=== PATIENT | male | born 1940 | race Asian ===

== ENCOUNTER 2018-04-12 14:06 | Inpatient (IN) | payer OTHER ==
[~2018-04-12] VITALS: Ht 180.3 cm; Wt 79.0 kg
[2018-04-12 14:50] LABS: BASOPHILS # (AUTO) 0.03 x10^3/uL (0-0.1); BASOPHILS % (AUTO) 0 % (0-1); EOSINOPHILS # (AUTO) 0.05 x10^3/uL (0-0.4); EOSINOPHILS % (AUTO) 1 % (1-7); LYMPHOCYTES # (AUTO) 1.16 x10^3/uL (1-3.4); LYMPHOCYTES % (AUTO) 11 % (22-44); MD NO; MEAN CORPUSCULAR HEMOGLOBIN 35.5 pg (27.5-34.5); MEAN CORPUSCULAR HGB CONC 33.6 g/dL (33.2-36.2); MEAN CORPUSCULAR VOLUME 105.5 fL (81-97); MEAN PLATELET VOLUME 9.5 fL (7.4-10.4); MONOCYTES % (AUTO) 7 % (2-9); NEUTROPHILS # (AUTO) 8.34 x10^3/uL (1.8-6.8); NEUTROPHILS % (AUTO) 81 % (42-75); PLATELET COUNT 288 x10^3/uL (130-400); RED BLOOD COUNT 4.34 x10^6/uL (4.38-5.82); RED CELL DISTRIBUTION WIDTH 14.8 % (9.4-14.8)
[2018-04-12 15:07] LABS: ALBUMIN 4.2 g/dL (3.4-5.0); ANION GAP 9 mmol/L (5-15); CALCIUM 9.2 mg/dL (8.5-10.1); CHLORIDE 108 mmol/L (98-107)
[2018-04-12 15:19] LABS: CREATININE 1.22 mg/dL (0.7-1.3); TROPONIN I < 0.015 ng/mL (0.000-0.045)
[2018-04-12] MEDS ORDERED: DILTIAZEM 125 MG in DEXTROSE 5% 100 ML IV SCH (15:34)
[2018-04-12] MEDS ORDERED: LORazepam 2 MG/ML, 1ML ONE (15:37)
[2018-04-12] MEDS ORDERED: CITA20TA9 PO (15:46)
[2018-04-12] MEDS ORDERED: CLON2TAB9 PO (15:47)
[2018-04-12] MEDS ORDERED: LORazepam 2 MG/ML, 1ML IVPush ONE (16:00)
[2018-04-12] MEDS ORDERED: POTASSIUM CHLORIDE 20 MEQ TAB.ER.PRT ONE (16:16)
[2018-04-12] MEDS ORDERED: SODIUM CHLORIDE 0.9% 1,000 ML IV SCH (16:27)
[2018-04-12] MEDS ORDERED: ACETAMINOPHEN 325 MG TABLET PO PRN (16:30)
[2018-04-12] MEDS ORDERED: POTASSIUM CHLORIDE 20 MEQ TAB.ER.PRT PO ONE (16:30)
[2018-04-12] MEDS ORDERED: DOCUSATE 100 MG CAPSULE PO PRN (16:30)
[2018-04-12] MEDS ORDERED: LORazepam 2 MG/ML, 1ML IVPush PRN (16:30)
[2018-04-12] MEDS ORDERED: POLYETHYLENE GLYCOL 17 GM PACKET PO PRN (16:30)
[2018-04-12] MEDS ORDERED: METHOCARBAMOL 500 MG TABLET PO PRN (16:30)
[2018-04-12] MEDS ORDERED: BISACODYL 10 MG SUPP PR PRN (16:30)
[2018-04-12] MEDS ORDERED: HEPARIN 5,000 UNITS/ML, 1ML IV ONE (17:00)
[2018-04-12] MEDS ORDERED: HEPARIN 25,000 UNITS/500ML PMX 500 ML IV PRN (17:00)
[2018-04-12] MEDS ORDERED: HEPARIN 5,000 UNITS/ML, 1ML IV PRN (17:00)
[2018-04-12 18:09] LABS: TROPONIN I < 0.015 ng/mL (0.000-0.045)
[2018-04-12 18:19] LABS: HEMOGLOBIN A1C 5.5 % (4.2-6.3)
[2018-04-12 18:24] VITALS: BP 114/62
[2018-04-12 20:12] VITALS: BP 131/75
[2018-04-12 22:29] VITALS: BP 107/58
[2018-04-12 23:21] LABS: TROPONIN I < 0.015 ng/mL (0.000-0.045)
[2018-04-13 00:24] VITALS: BP 116/70
[2018-04-13 03:04] LABS: BASOPHILS # (AUTO) 0.03 x10^3/uL (0-0.1); BASOPHILS % (AUTO) 0 % (0-1); EOSINOPHILS # (AUTO) 0.11 x10^3/uL (0-0.4); EOSINOPHILS % (AUTO) 1 % (1-7); LYMPHOCYTES # (AUTO) 1.72 x10^3/uL (1-3.4); LYMPHOCYTES % (AUTO) 22 % (22-44); MD NO; MEAN CORPUSCULAR HEMOGLOBIN 35.8 pg (27.5-34.5); MEAN CORPUSCULAR HGB CONC 34.5 g/dL (33.2-36.2); MEAN CORPUSCULAR VOLUME 103.8 fL (81-97); MEAN PLATELET VOLUME 9.3 fL (7.4-10.4); MONOCYTES # (AUTO) 0.75 x10^3/uL (0.2-0.8); MONOCYTES % (AUTO) 9 % (2-9); NEUTROPHILS # (AUTO) 5.37 x10^3/uL (1.8-6.8); NEUTROPHILS % (AUTO) 67 % (42-75); PLATELET COUNT 230 x10^3/uL (130-400); RED BLOOD COUNT 3.63 x10^6/uL (4.38-5.82); RED CELL DISTRIBUTION WIDTH 14.9 % (9.4-14.8)
[2018-04-13 03:14] LABS: ANION GAP 10 mmol/L (5-15); CALCIUM 8.1 mg/dL (8.5-10.1); CHLORIDE 111 mmol/L (98-107); CREATININE 0.89 mg/dL (0.7-1.3)
[2018-04-13 07:50] VITALS: BP 134/79
[2018-04-13] MEDS ORDERED: POTASSIUM CHLORIDE 20 MEQ TAB.ER.PRT PO SCH (08:30)
[2018-04-13] MEDS ORDERED: CITALOPRAM 20 MG TABLET PO SCH (09:00)
[2018-04-13] MEDS ORDERED: APIXABAN 5 MG TABLET ONE (09:21)
[2018-04-13] MEDS ORDERED: POTASSIUM PHOSPHATE 22 MEQ in SODIUM CHLORIDE 0.9% 500 ML IV ONE (09:30)
[2018-04-13] MEDS ORDERED: APIXABAN 5 MG TABLET PO SCH (09:30)
[2018-04-13] MEDS ORDERED: METOPROLOL TARTRATE 25 MG TABLET PO SCH (09:30)
[2018-04-13 12:55] VITALS: BP 130/74
[2018-04-13] MEDS ORDERED: METO25TA35 PO (14:09)
== END 2018-04-13 16:43 | disposition home or self-care (01) | DRG 309 ==
LOC: ED 16:16 → EDIP 16:17 → 5SO 16:41
PROVIDERS: ADMIT Hospitalist; ATTEND Hospitalist
DX: I48.2 Chronic atrial fibrillation (principal); D68.69 Other thrombophilia; E87.6 Hypokalemia; F17.210 Nicotine dependence, cigarettes, uncomplicated; F41.1 Generalized anxiety disorder; Z79.82 Long term (current) use of aspirin; Z86.73 Personal history of transient ischemic attack (TIA), and cerebral infarction without residual deficits; F41.0 Panic disorder [episodic paroxysmal anxiety]
CPT/HCPCS: 36415; 71045; 80048; 82040; 83036; 83605; 83735; 84100; 84443; 84484; 85025; 85520; 85730; 87040; 93005; 93306; 96365; 96375; 99291; G0378; J1644; J2060; J7040

== ENCOUNTER 2018-06-14 14:27 | Emergency (ER) | payer OTHER ==
[~2018-06-14] VITALS: Ht 180.3 cm; Wt 86.0 kg
[~2018-06-14 14:27] MED LIST: CITA20TA9 PO; CLON2TAB9 PO; METO25TA35 PO
--- NOTE | 2018-06-14 14:41 | NUR ---
PT BIB [facility] FROM HOME FOR WEAKNESS AND BEING COLD. PT STATED THAT HE HAS AFIB. PT HAS A HISTORY OF ANXIETY. PT IS ALERT, ORIENTED, WITH NAD. PT IS CONNECTED TO THE MONITOR. CALL LIGHT WITHIN REACH.
--- NOTE | 2018-06-14 15:27 | NUR ---
PT TOOK HIS AMY NINO PER . PT GIVEN A SNACK TO EAT.
--- NOTE | 2018-06-14 15:36 | NUR ---
EKG AT BEDSIDE.
[2018-06-14 15:45] LABS: BASOPHILS # (AUTO) 0.03 x10^3/uL (0-0.1); BASOPHILS % (AUTO) 0 % (0-1); EOSINOPHILS # (AUTO) 0.03 x10^3/uL (0-0.4); EOSINOPHILS % (AUTO) 0 % (1-7); LYMPHOCYTES # (AUTO) 1.13 x10^3/uL (1-3.4); LYMPHOCYTES % (AUTO) 14 % (22-44); MD NO; MEAN CORPUSCULAR HEMOGLOBIN 35.9 pg (27.5-34.5); MEAN CORPUSCULAR HGB CONC 34.1 g/dL (33.2-36.2); MEAN CORPUSCULAR VOLUME 105.3 fL (81-97); MEAN PLATELET VOLUME 9.4 fL (7.4-10.4); MONOCYTES # (AUTO) 0.69 x10^3/uL (0.2-0.8); MONOCYTES % (AUTO) 9 % (2-9); NEUTROPHILS # (AUTO) 6.08 x10^3/uL (1.8-6.8); NEUTROPHILS % (AUTO) 76 % (42-75); PLATELET COUNT 292 x10^3/uL (130-400); RED BLOOD COUNT 3.93 x10^6/uL (4.38-5.82); RED CELL DISTRIBUTION WIDTH 14.9 % (9.4-14.8)
[2018-06-14 15:56] LABS: ANION GAP 9 mmol/L (5-15); CALCIUM 8.4 mg/dL (8.5-10.1); CHLORIDE 109 mmol/L (98-107); CREATININE 0.87 mg/dL (0.7-1.3)
[2018-06-14 15:57] LABS: ALBUMIN 3.7 g/dL (3.4-5.0)
--- NOTE | 2018-06-14 16:20 | NUR ---
PT KEEPS ASKING FOR HIS FOOD TRAY. DIETARY CALLED. THEY STATED THAT THEY HAVE THE ORDER.
--- NOTE | 2018-06-14 16:27 | NUR ---
PT GIVEN DINNER TRAY. PT IS EATING AND APPRECIATIVE.
[2018-06-14] MEDS ORDERED: POTASSIUM CHLORIDE 20 MEQ TAB.ER.PRT PO ONE (17:00)
[2018-06-14 17:03] VITALS: BP 135/85
--- NOTE | 2018-06-14 18:36 | NUR ---
Patient given discharge instructions and they have confirmed that they understand the instructions. Patient ambulatory with steady gait.
== END 2018-06-14 18:37 | disposition home or self-care (01) ==
LOC: ED 14:51
DX: F41.1 Generalized anxiety disorder (principal); E87.6 Hypokalemia; F17.200 Nicotine dependence, unspecified, uncomplicated
CPT/HCPCS: 36415; 80048; 82040; 85025; 93005; 99284